=== PATIENT | female | born 1975 | race Caucasian/White ===

== ENCOUNTER → 2023-12-29 09:58 | Outpatient (REF) | payer BC, SELFPAY | LOC: RCS 09:58 | PROVIDERS: ATTENDING PHYSICIAN Internal Medicine Cardiovascular Disease; FAMILY PHYSICIAN Family Medicine | DX: I77.810 Thoracic aortic ectasia (principal) | CPT/HCPCS: 93306 ==

== ENCOUNTER → 2024-11-08 16:01 | Outpatient (REF) | payer BC, SELFPAY | LOC: WDC 16:01 | PROVIDERS: ATTENDING PHYSICIAN Family Medicine | DX: Z12.31 Encounter for screening mammogram for malignant neoplasm of breast (principal) | CPT/HCPCS: 77063; 77067 ==

== ENCOUNTER → 2025-01-09 10:34 | Outpatient (REF) | payer BC, SELFPAY | LOC: RAD 10:34 | PROVIDERS: ATTENDING PHYSICIAN Internal Medicine Cardiovascular Disease; FAMILY PHYSICIAN Family Medicine | DX: I77.810 Thoracic aortic ectasia (principal) | CPT/HCPCS: 71275; Q9967 ==